=== PATIENT | male | born 2000 | race Caucasian/White ===

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

== ENCOUNTER → 2020-09-17 | Outpatient (REF) | payer MEDICAID | LOC: M SFHCPLAZ 15:51 | DX: R73.03 Prediabetes (principal); E66.9 Obesity, unspecified ==

== ENCOUNTER → 2020-10-29 | Outpatient (CLI) | payer MEDICAID ==
[2020-10-29 11:00] LABS: HEMATOCRIT 51.5 % (42.0-52.0); HEMOGLOBIN 16.7 g/dl (13.5-17.5); MEAN CORPUSCULAR HEMOGLOBIN 28.1 pg (27.0-33.0); MEAN CORPUSCULAR HGB CONC 32.4 g/dl (32.0-36.5); MEAN CORPUSCULAR VOLUME 86.7 fl (80.0-96.0); PLATELET COUNT, AUTOMATED 306 10^3/uL (150-450); RED BLOOD COUNT 5.94 10^6/uL (4.30-6.10); WHITE BLOOD COUNT 8.4 10^3/uL (4.0-10.0)
[2020-10-29 11:28] LABS: ALBUMIN 3.8 GM/DL (3.2-5.2); ALT/SGPT 45 U/L (12-78); BILIRUBIN,TOTAL 0.3 MG/DL (0.2-1.0); BLOOD UREA NITROGEN 11 MG/DL (7-18); CALCIUM LEVEL 9.3 MG/DL (8.5-10.1); CARBON DIOXIDE LEVEL 29 MEQ/L (21-32); CHLORIDE LEVEL 105 MEQ/L (98-107); CHOLESTEROL LEVEL 203 MG/DL (<200); CHOLESTEROL RISK RATIO 4.613 (<5); GLUCOSE, FASTING 87 MG/DL (70-100); HDL CHOLESTEROL 44 MG/DL (>40); HEMOGLOBIN A1c 5.2 %; LDL CHOLESTEROL 135 MG/DL (<100); NON-HDL-C 159 MG/DL; POTASSIUM SERUM 4.6 MEQ/L (3.5-5.1); SODIUM LEVEL 137 MEQ/L (136-145); TOTAL PROTEIN 7.8 GM/DL (6.4-8.2); TRIGLYCERIDES LEVEL 118 MG/DL (<150)
== END ==
LOC: M LAB 10:12
PROVIDERS: ATTEND Student in an Organized Health Care Education/Training Program
DX: R73.03 Prediabetes (principal)

== ENCOUNTER → 2020-10-30 | Outpatient (REF) | payer MEDICAID | LOC: M SFHCPLAZ 10:05 | PROVIDERS: ATTEND Family Medicine | DX: Z53.9 Procedure and treatment not carried out, unspecified reason (principal); R74.8 Abnormal levels of other serum enzymes ==

== ENCOUNTER → 2020-11-26 | Outpatient (CLI) | payer MEDICAID, OTHER ==
--- NOTE | 2020-11-27 04:06 | REPPI ---
INDICATION: M61.412 OHER CALVIFICATION OF MUSCLE, LEFT SHOULDER COMPARISON: Left humerus x-rays dated 08/05/2019, 12/03/2012 TECHNIQUE: Internal rotation, external rotation, and Y view. FINDINGS: The acromioclavicular and glenohumeral joints are intact and normal. There multiple exostoses/osteoma formation along the proximal 3rd of the humeral shaft are again identified. Small new adjacent calcified components cannot be excluded. IMPRESSION: 1. Normal appearance of the left shoulder. 2. Exostosis/osteoma formation is again noted and new calcified components cannot be excluded. Correlation with physical examination is recommended along with orthopedic consultation to determine if MRI evaluation may be warranted. <Electronically signed by Javier Clarke > 11/27/20 [id number]
== END ==
LOC: M PLAIMG 11:42
PROVIDERS: ATTEND Student in an Organized Health Care Education/Training Program
DX: M61.412 Other calcification of muscle, left shoulder (principal)

== ENCOUNTER → 2021-03-11 | Outpatient (REF) | payer OTHER | LOC: M SFHCPLAZ 11:31 | PROVIDERS: ATTEND Family Medicine | DX: R74.8 Abnormal levels of other serum enzymes (principal) ==

== ENCOUNTER → 2021-07-02 | Outpatient (REF) | payer OTHER | LOC: M SFHCPLAZ 11:09 | PROVIDERS: ATTEND Family Medicine | DX: Z53.9 Procedure and treatment not carried out, unspecified reason (principal); R74.8 Abnormal levels of other serum enzymes; Z13.1 Encounter for screening for diabetes mellitus; Z13.220 Encounter for screening for lipoid disorders ==

== ENCOUNTER → 2021-07-23 | Outpatient (CLI) | payer OTHER, MEDICAID | LOC: M SOG 13:53 | PROVIDERS: ATTEND Orthopaedic Surgery Sports Medicine | DX: D16.02 Benign neoplasm of scapula and long bones of left upper limb (principal) ==

== ENCOUNTER 2021-11-15 11:05 | Emergency (ER) | payer MEDICAID, OTHER ==
[~2021-11-15] VITALS: Ht 152.4 cm; Wt 86.7 kg
[2021-11-15 11:29] VITALS: O2SAT 97
[2021-11-15] MEDS ORDERED: DEXM1CAP16 (11:34)
[2021-11-15] MEDS ORDERED: AYR0.65S (11:34)
[2021-11-15] MEDS ORDERED: MELA10CA6 PO (11:34)
[2021-11-15] MEDS ORDERED: IBUP200C25 PO (11:34)
[2021-11-15] MEDS ORDERED: MUCI60TA7 PO (12:00)
[2021-11-15 12:13] VITALS: BP 144/67
== END 2021-11-15 12:12 | disposition home or self-care (01) ==
LOC: M ED 11:05
DX: U07.1 COVID-19 (principal); F90.9 Attention-deficit hyperactivity disorder, unspecified type

== ENCOUNTER 2022-08-03 01:56 | Emergency (ER) | payer MEDICAID, OTHER ==
[~2022-08-03] VITALS: Ht 152.4 cm; Wt 92.6 kg
[~2022-08-03 01:56] MED LIST: AYR0.65S; DEXM1CAP16; IBUP200C25 PO; MELA10CA6 PO; MUCI60TA7 PO
[2022-08-03 01:57] VITALS: BP 143/82
== END 2022-08-03 03:06 | disposition left against medical advice (07) ==
LOC: M ED 01:56
DX: Z53.21 Procedure and treatment not carried out due to patient leaving prior to being seen by health care provider (principal)

== ENCOUNTER → 2023-01-03 | Outpatient (REF) | payer OTHER, MEDICAID | LOC: M LAB REF 11:20 | PROVIDERS: ATTEND Physician Assistant | DX: J02.9 Acute pharyngitis, unspecified (principal) ==

== ENCOUNTER → 2023-04-17 | Outpatient (REF) | payer OTHER, MEDICAID | LOC: M LAB REF 16:20 | PROVIDERS: ATTEND Physician Assistant | DX: J02.9 Acute pharyngitis, unspecified (principal) ==

== ENCOUNTER → 2023-09-13 | Outpatient (CLI) | payer OTHER | LOC: M PLAIMG 10:35 | PROVIDERS: ATTEND Student in an Organized Health Care Education/Training Program | DX: M25.562 Pain in left knee (principal); M25.561 Pain in right knee ==

== ENCOUNTER → 2023-10-07 | Outpatient (REF) | payer OTHER | LOC: M LAB REF 18:57 | PROVIDERS: ATTEND Physician Assistant Medical | DX: R07.0 Pain in throat (principal) ==

== ENCOUNTER → 2023-10-21 | Outpatient (REF) | payer OTHER | LOC: M LAB REF 18:08 | PROVIDERS: ATTEND Physician Assistant | DX: J02.9 Acute pharyngitis, unspecified (principal) ==

== ENCOUNTER 2024-04-26 22:00 | Emergency (ER) | payer OTHER, SELFPAY ==
[~2024-04-26] VITALS: Ht 152.4 cm; Wt 93.5 kg
[2024-04-26 22:03] VITALS: TEMP 97.4
[2024-04-27] MEDS ORDERED: CIPR7.5D2 OT (00:17)
[2024-04-27] MEDS: CIPRODEX OTIC SUSP 7.5ML AD ONE (01:20)
[2024-04-27 01:21] VITALS: BP 146/85; O2SAT 96
== END 2024-04-27 01:25 | disposition home or self-care (01) ==
LOC: M ED 22:00
DX: H60.91 Unspecified otitis externa, right ear (principal); I10 Essential (primary) hypertension; F17.200 Nicotine dependence, unspecified, uncomplicated; Z88.2 Allergy status to sulfonamides; Z88.1 Allergy status to other antibiotic agents; Z79.2 Long term (current) use of antibiotics; Z79.1 Long term (current) use of non-steroidal anti-inflammatories (NSAID); Z79.899 Other long term (current) drug therapy

== ENCOUNTER → 2025-03-09 | Outpatient (REF) | payer OTHER ==
[~2025-03-09] MED LIST changes: +CIPR7.5D2 OT
== END ==
LOC: M LAB REF 17:32
PROVIDERS: ATTEND Physician Assistant
DX: B34.9 Viral infection, unspecified (principal)

== ENCOUNTER → 2025-05-11 | Outpatient (REF) | payer OTHER | LOC: M LAB REF 18:13 | DX: J02.9 Acute pharyngitis, unspecified (principal) ==